=== PATIENT | male | born 1995 | race Two or more races ===

== ENCOUNTER 2021-11-08 23:03 | Emergency (ER) | payer SELFPAY ==
[~2021-11-08] VITALS: Ht 177.8 cm; Wt 75.0 kg
[2021-11-08] MEDS: ACETAMINOPHEN 325 MG TAB PO ONE ×2 (23:42→23:50)
[2021-11-09] MEDS ORDERED: HYDROcodone-ACET 5/325MG TAB PO ONE
[2021-11-09] MEDS ORDERED: KETAMINE 50mg/ML 10ml Vial (500mg/10ml) IV ONE (00:45)
[2021-11-09 02:55] VITALS: BP 123/72
== END 2021-11-09 03:35 | disposition home or self-care (01) ==
LOC: ER 23:03
DX: S52.502A Unspecified fracture of the lower end of left radius, initial encounter for closed fracture (principal); V29.49XA Motorcycle driver injured in collision with other motor vehicles in traffic accident, initial encounter; Y93.89 Activity, other specified; Y92.89 Other specified places as the place of occurrence of the external cause; Y99.8 Other external cause status; J45.909 Unspecified asthma, uncomplicated
CPT/HCPCS: 25605; 71045; 73100; 73110; 73130; 73562; 99152

== ENCOUNTER 2022-05-11 19:49 | Emergency (ER) | payer MEDICAID, OTHER ==
[~2022-05-11] VITALS: Ht 167.6 cm; Wt 93.0 kg
[2022-05-11] MEDS ORDERED: ALBUTEROL MEDNEB 2.5 mg/3ml NEB ONE (23:28)
[2022-05-11] MEDS ORDERED: ALBUTEROL SULF 2.5 MG/0.5ML(0.5%) NEB SOLN NEB ONE (23:30)
[2022-05-11] MEDS ORDERED: methylPREDNISolone SOD SUCC 125 MG/2 ML VL IM ONE (23:30)
[2022-05-11] MEDS ORDERED: IPRATROPIUM BROM 0.5 MG/2.5ML INH SOL NEB ONE (23:30)
[2022-05-11] MEDS ORDERED: PRED20TA2 PO (23:45)
[2022-05-11] MEDS ORDERED: AZITTAB PO (23:45)
[2022-05-12 00:55] VITALS: BP 127/74
== END 2022-05-12 01:03 | disposition home or self-care (01) ==
LOC: ER 19:51
DX: J06.9 Acute upper respiratory infection, unspecified (principal); J02.9 Acute pharyngitis, unspecified; J45.909 Unspecified asthma, uncomplicated
CPT/HCPCS: 94640; 96372; 99283; J2930; J7644

== ENCOUNTER 2022-06-16 17:38 | Emergency (ER) | payer MEDICAID ==
[~2022-06-16] VITALS: Ht 167.6 cm; Wt 92.8 kg
[~2022-06-16 17:38] MED LIST: AZITTAB PO; PRED20TA2 PO
[2022-06-16 18:14] LABS: Basophils # (auto) 0.1 10 ^3/uL (0-0.2); Basophils % (auto) 0.9 % (0.0-2.0); Eosinophils # (auto) 0.1 10 ^3/uL (0-0.8); Eosinophils % (auto) 1.2 % (0.0-7.0); Hematocrit 42.6 % (41.0-53.0); Hemoglobin 15.4 g/dL (13.5-17.5); Lymphocytes # (auto) 3.5 10 ^3/uL (0.4-5.4); Lymphocytes % (auto) 38.8 % (10.0-50.0); Mean Corpuscular Hemoglobin 30.9 pg (28.0-32.0); Mean Corpuscular Hgb Conc. 36.1 g/dL (32.0-36.0); Mean Corpuscular Volume 85.5 fL (80.0-100.0); Monocytes # (auto) 0.8 10 ^3/uL (0-1.3); Neutrophils # (auto) 4.5 10 ^3/uL (1.6-8.6); Neutrophils % (auto) 50.1 % (37.0-80.0); Nucleated Red Blood Cells % 0.1 %; Red Blood Cells 4.99 10^6/uL (4.5-5.90); Red Cell Distribution Width 13.8 % (11.8-14.3)
[2022-06-16 18:42] LABS: Urine Bacteria NONE SEEN /hpf (None Seen); Urine Blood Negative /uL (Negative); Urine Specific Gravity 1.017 (1.001-1.035); Urine WBC <1 /hpf (0 - 3)
[2022-06-16 18:59] LABS: Albumin 4.3 g/dL (3.4-5.0); BUN/Creatinine Ratio 17.4 (10.0-20.0); Calcium 8.8 mg/dL (8.5-10.1); Potassium 3.9 mmol/L (3.5-5.1)
[2022-06-16 19:01] LABS: Bilirubin, Total 0.3 mg/dL (0.2-1.0); Total Protein 7.7 g/dL (6.4-8.2)
[2022-06-17] MEDS ORDERED: CIPR-173 PO (07:13)
[2022-06-17] MEDS ORDERED: PERCOT PO (07:13)
[2022-06-17 09:46] VITALS: BP 132/84
== END 2022-06-17 09:46 | disposition home or self-care (01) ==
LOC: ER 17:38
DX: K57.90 Diverticulosis of intestine, part unspecified, without perforation or abscess without bleeding (principal); M79.662 Pain in left lower leg; J45.909 Unspecified asthma, uncomplicated; Z88.1 Allergy status to other antibiotic agents; Z88.6 Allergy status to analgesic agent
CPT/HCPCS: 36415; 74176; 80053; 81001; 83690; 85025; 93971

== ENCOUNTER 2022-08-31 22:44 | Emergency (ER) | payer MEDICAID ==
[~2022-08-31] VITALS: Ht 167.6 cm; Wt 94.5 kg
[~2022-08-31 22:44] MED LIST changes: +CIPR-173 PO; +PERCOT PO
[2022-08-31 23:09] LABS: Basophils # (auto) 0.1 10 ^3/uL (0-0.2); Basophils % (auto) 0.7 % (0.0-2.0); Eosinophils # (auto) 0 10 ^3/uL (0-0.8); Eosinophils % (auto) 0.1 % (0.0-7.0); Hematocrit 46.4 % (41.0-53.0); Hemoglobin 16.2 g/dL (13.5-17.5); Lymphocytes # (auto) 1.2 10 ^3/uL (0.4-5.4); Lymphocytes % (auto) 12.2 % (10.0-50.0); Mean Corpuscular Hemoglobin 30.7 pg (28.0-32.0); Mean Corpuscular Hgb Conc. 34.8 g/dL (32.0-36.0); Mean Corpuscular Volume 88.1 fL (80.0-100.0); Monocytes # (auto) 0.2 10 ^3/uL (0-1.3); Monocytes % (auto) 2.2 % (0.0-12.0); Neutrophils % (auto) 84.8 % (37.0-80.0); Nucleated Red Blood Cells % 0.1 %; Red Blood Cells 5.27 10^6/uL (4.5-5.90); White Blood Cell 9.4 10^3/uL (4.4-10.8)
[2022-08-31 23:30] LABS: Albumin 4.4 g/dL (3.4-5.0); BUN/Creatinine Ratio 17.6 (10.0-20.0); Calcium 8.6 mg/dL (8.5-10.1); INR 0.97 (0.9-1.15); Partial Thromboplastin Time 30.2 sec (24.6-33.4); Potassium 4.2 mmol/L (3.5-5.1)
[2022-08-31 23:33] LABS: Bilirubin, Total 0.3 mg/dL (0.2-1.0); Total Protein 7.8 g/dL (6.4-8.2)
[2022-09-01] MEDS ORDERED: HYDR25CA PO (01:14)
[2022-09-01] MEDS ORDERED: IBU600T PO (01:14)
[2022-09-01] MEDS ORDERED: IBUPROFEN 800 MG TAB PO ONE (01:15)
[2022-09-01] MEDS ORDERED: LORazepam 0.5 MG TAB PO ONE (01:15)
[2022-09-01 03:50] VITALS: BP 144/78
== END 2022-09-01 03:53 | disposition home or self-care (01) ==
LOC: ER 22:44
DX: R07.89 Other chest pain (principal); F41.8 Other specified anxiety disorders; J45.909 Unspecified asthma, uncomplicated; Z79.2 Long term (current) use of antibiotics; Z79.899 Other long term (current) drug therapy
CPT/HCPCS: 36415; 71045; 80053; 83735; 83880; 84484; 85025; 85610; 85730; 93005

== ENCOUNTER 2024-01-23 18:17 | Emergency (ER) | payer BC, MEDICAID, OTHER ==
[~2024-01-23] VITALS: Ht 167.6 cm; Wt 99.0 kg
[~2024-01-23 18:17] MED LIST changes: +HYDR25CA PO; +IBU600T PO
[2024-01-23 20:51] VITALS: BP 131/71; PULSE 81; RESP 18; TEMP 98; O2SAT 96
[2024-01-23] MEDS ORDERED: METH4PAK PO (20:52)
--- NOTE | 2024-01-23 20:52 | ED.PDOC ---
HPI (NEURO) HPI Comments This is a 28-year-old male presents to the ED chief complaint left-sided headache. Patient states was seen at urgent care around 5 days ago was diagnosed with left ear infection. He was given in Augmentin and ibuprofen 800 mg he states improvement in his ear pain but continues with left-sided head pain. Taking the 800 ibuprofen with little help. Denies any known trauma. Denies any known focal neuro deficits. Denies numbness, weakness, slurred s peech. Chief Complaint: Headache Time Seen by MD: 18:34 Primary Care Provider: NONE Reviewed Notes: Nurses Notes, Medications, Allergies Information Source: Patient Mode of Arrival: Ambulatory Past Medical History PAST MEDICAL HISTORY: Asthma Surgical History: Denies all surgeries Family History Family History: Reviewed,noncontributory to illness Social History Smoker: Non-Smoker Alcohol: Denies ETOH Use Drugs: Denies Drug Use Lives In: Home Constitutional: denies: chills, diaphoresis, fatigue, fever, malaise, sweats, weakness, others EENTM: denies: blurred vision, double vision, ear bleeding, ear discharge, ear drainage, ear pain, ear ringing, eye pain, eye redness, hearing loss, mouth pain, mouth swelling, nasal discharge, nose bleeding, nose congestion, nose pain, photophobia, tearing, throat pain, throat swelling, voice changes, others Respiratory: denies: cough, hemoptysis, orthopnea, SOB at rest, shortness of breath, SOB with excertion, stridor, wheezing, others Cardiovascular: denies: chest pain, dizzy spells, diaphoresis, Dyspnea on exertion, edema, irregular heart beat, left arm pain, lightheadedness, palpitations, PND, syncope, others Gastrointestinal: denies: abdomen distended, abdominal pain, blood streaked bowels, constipated, diarrhea, dysphagia, difficulty swallowing, hematemesis, melena, nausea, poor appetite, poor fluid intake, rectal bleeding, rectal pain, vomiting, others Genitourinary: denies: burning, dysuria, flank pain, frequency, hematuria, incontinence, penile discharge, penile sore, pain, testicle pain, testicle swelling, urgency, others Neurological: reports: headache; denies: dizziness, fainting, left sided numbness, left sided weakness, numbness, paresthesia, pre-existing deficit, right sided numbness, right sided weakness, seizure, speech problems, tingling, tremors, weakness, others Musculoskeletal: denies: back pain, gout, joint pain, joint swelling, muscle pain, muscle stiffness, neck pain, others Integumetry: denies: bruises, change in color, change in hair/nails, dryness, laceration, lesions, lumps, rash, wounds, others Allergic/Immunocompromised: denies: Difficulty Healing, Frequent Infections, Hives, Itching, others Hematologic/Lymphatic: denies: anemia, blood clots, easy bleeding, easy bruising, swollen glands, others Endocrine: denies: excessive hunger, excessive sweating, excessive thirst, excessive urination, flushing, intolerance to cold, intolerance to heat, unexplained weight gain, unexplained weight loss, others Psychiatric: denies: anxiety, bipolar disorder, depression, hopeless, panic disorder, schizophrenia, sleepless, suicidal, others Physical Exam General Appearance: No Apparent Distress, Normal HEENT: Normal ENT Inspection, Pharynx Normal, TMs Normal Neck: Full Range of Motion, Non-Tender Respiratory: Lungs Clear, No Respiratory Distress, Normal Breath Sounds Cardiovascular: No Murmur, Normal Peripheral Pulses, Regular Rate/Rhythm Breast Exam: Deferred Gastrointestinal: Non Tender, Soft Genitalia: Deferred Pelvic: Deferred Rectal: Deferred Extremities: Normal capillary refill, Normal inspection, Normal range of motion, Non-tender Musculoskeletal : Apperance: Normal Neurologic: Alert, manager strategic development II-XII nml as Tested, No Motor Deficits, Normal Affect, Normal Mood, No Sensory Deficits Cerebellar Function: Normal Reflexes: Normal Skin: Dry, Normal Color, Warm Lymphatic: No Adenopathy Was a procedure done? Was a procedure done?: No Differential Diagnosis (SZ) Seizure: Meningitis X-Ray, Labs, Meds, VS Vital Signs Date Time Temp Pulse Resp B/P (MAP) Pulse Ox O2 Delivery O2 Flow Rate FiO2 01/23/24 18:30 98.3 77 18 127/87 (100) 98 X-Ray, Labs, Meds, VS Comment Patient given Toradol 60 mg IM and Decadron 10 mg IM patient reports improvement in pain and symptoms requesting discharge at this time. Script Medrol Dosepak. Into complete the antibiotics prescribed by urgent care. Left ear TM with minimal erythema and edema. Advised to follow up with his PCP in 2-3 days as necessary. Return to the ER for worst headache of the life, numbness, weakness, slurred speech, any neuro focal deficits. Reevaluation 1ST: Improved Patient Education/Counseling: Diagnosis, Treatment, Prognosis, Need For Follow Up Family Education/Counseling: No Family Present Departure 1 Departure Time of Disposition: 20:51 Impression: Primary Impression: Headache Qualified Codes: G44.201 - Tension-type headache, unspecified, intractable Disposition: 01 HOME / SELF CARE / HOMELESS Condition: Stable e-Prescriptions Methylprednisolone (Medrol Dosepak) 4 Mg Jakub 4 MG PO UD for 6 Days, #21 TAB UAD Prov: VINCENT COLMENARES 01/23/24 Discharged With: Self Critical Care Note Critical Care Time?: No Stability Stability form required: VINCENT Patel Jan 23, 2024 20:52
[2024-01-23] MEDS: DexAMETHasone SOD PHOS 10MG/1ML VIAL INJ IM ONE (21:00)
[2024-01-23] MEDS: KETOROLAC TROMETH 60MG/2ML VIAL IM ONE (21:00)
== END 2024-01-23 21:22 | disposition home or self-care (01) ==
LOC: ER 18:17
DX: R51.9 Headache, unspecified (principal); H57.12 Ocular pain, left eye; J45.909 Unspecified asthma, uncomplicated
CPT/HCPCS: 96372; 99284; J1100; J1885